=== PATIENT | male | born 2000 | race Caucasian/White ===

== ENCOUNTER 2021-01-23 12:54 | Emergency (ER) | payer OTHER ==
--- NOTE | 2021-01-23 13:29 | RAD REPORT ---
EXAM DESCRIPTION: CT - Head C Spine Mpr Wo Con - 01/23/2021 1:15 pm CLINICAL HISTORY: Head and neck injury status post fall. Head and neck pain COMPARISON: None. TECHNIQUE: Computed axial tomography of the head and cervical spine was obtained. Sagittal and coronal reconstruction was performed. All CT scans are performed using dose optimization technique as appropriate and may include automated exposure control or mA/KV adjustment according to patient size. FINDINGS: An intracranial bleed is not seen. The ventricles are normal in caliber. An extra-axial fl uid collection is not noted.Fluid within the visualized sinuses and mastoids is not seen A cervical fracture is not visualized. No dislocation is noted. IMPRESSION: No acute intracranial abnormality is seen. A cervical fracture is not visualized. If the patient continues to have symptoms to suggest intracra nial /spinal cord pathology then MRI would be recommended
[2021-01-23 14:02] LABS: Hematocrit 46.3 % (39.6-49.0); RBC Red Blood Cell Count 5.65 M/uL (4.33-5.43)
[2021-01-23 14:15] LABS: BUN Blood Urea Nitrogen 13 mg/dL (7-18); Bicarbonate 31 mmol/L (21-32); Glucose Level 101 mg/dL (74-106); Sodium Level 140 mmol/L (136-145)
--- NOTE | 2021-01-23 15:45 | ER ---
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 Pt states "I went to the aa5 bathroom, passed out and hit my head on the left side on the tub, then I went to the living room and passed out again; I just felt really lightheaded before passing out". Pt denies any symptoms a this time, denies N/V, denies headache, denies dizziness/lightheadedness. Coronavirus screen: At this time, the client does not indicate any symptoms associated with coronavirus-19. Ebola Screen: Patient negative for fever greater than or equal to 101.5 degrees Fahrenheit, and additional compatible Ebola Virus Disease symptoms. Initial Sepsis Screen: Does the patient meet any 2 criteria? No. Patient's initial sepsis screen is negative. Does the patient have a suspected source of infection? No. Patient's initial sepsis screen is negative. Risk Assessment: Do you want to hurt yourself or someone else? Patient reports no desire to harm self or others. Onset of symptoms was January 23, 2021. 13:35 Acuity: MARLIN 3 aa5 13:35 Method Of Arrival: Ambulatory aa5 Historical: - Allergies: 13:35 No Known Allergies; aa5 - PMHx: 13:35 Depressive disorder; aa5 - PSHx: 13:35 None; aa5 - Immunization history:: Adult Immunizations unknown. - Social history:: Smoking status: Patient denies any tobacco usage or history of. Screenin:28 Abuse screen: Denies threats or abuse. Denies injuries from another. Nutritional iw screening: No deficits noted. Tuberculosis screening: No symptoms or risk factors identified. Assessment: 15:27 General: Appears in no apparent distress. comfortable, Behavior is calm, cooperative. iw Neuro: Level of Consciousness is awake, alert, obeys commands, Oriented to person, place, time, situation, Moves all extremities. Full function. Derm: Skin is intact, is healthy with good turgor. Vital Signs: 13:35 BP 114 / 76; Pulse 91; Resp 16 S; Temp 97.0(TE); Pulse Ox 96% on R/A; Weight 129.27 kg aa5 (R); Height 6 ft. 3 in. (190.50 cm) (R); Pain 3/10; 13:35 Body Mass Index 35.62 (129.27 kg, 190.50 cm) aa5 [place] Coma Score: 15:41 Eye Response: spontaneous(4). Verbal Response: oriented(5). Motor Response: obeys [facility] commands(6). Total: 15. ED Course: 12:57 Patient arrived in ED. ds1 13:02 Prabhjot Kiran MD is Attending Physician. [facility] 13:15 CT Head C Spine In Process Unspecified. EDCO 13:38 EKG done, by ED staff, reviewed by Prabhjot Kiran MD. aa5 13:40 Initial lab(s) drawn, by nj, sent to lab. Inserted saline lock: 20 gauge in right aa5 antecubital area, using aseptic technique. Blood collected. 13:41 Arm band placed on Patient placed in waiting room, Patient notified of wait time. aa5 13:42 Triage completed. aa5 15:01 Devorah Collado, RN is Primary Nurse. iw Administered Medications: No medications were administered Outcome: 15:44 Discharge ordered by . [facility] 16:00 Patient left the ED. 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 Pt aa5 aa5
--- NOTE | 2021-01-23 15:45 | EDPHYS ---
Physician Documentation [facility] Name: Raegan Roberts Age: 20 yrs Sex: Male : 2000 Arrival Date: 01/23/2021 Time: 12:57 Bed DX2 Private MD: ED Physician Prabhjot Kiran HPI: 01/23 15:39 This 20 yrs old Male presents to ER via Ambulatory with complaints of Fall britany Injury - Hit Head w/LOC, Passed Out Prior To Arrival. 15:39 Details of fall: The patient fell from an upright position, while walking. Onset: The britany symptoms/episode began/occurred just prior to arrival. Associated injuries: The patient sustained injury to the head. Severity of symptoms: At their worst the symptoms were mild, in the emergency department the symptoms are unchanged. The patient has not experienced similar symptoms in the past. Historical: - Allergies: 13:35 No Known Allergies; aa5 - PMHx: 13:35 Depressive disorder; aa5 - PSHx: 13:35 None; aa5 - Immunization history:: Adult Immunizations unknown. - Social history:: Smoking status: Patient denies any tobacco usage or history of. ROS: 15:40 Constitutional: Negative for fever, chills, and weight loss, Eyes: Negative for injury, britany pain, redness, and discharge, ENT: Negative for injury, pain, and discharge, Neck: Negative for injury, pain, and swelling, Cardiovascular: Negative for chest pain, palpitations, and edema, Respiratory: Negative for shortness of breath, cough, wheezing, and pleuritic chest pain, Abdomen/GI: Negative for abdominal pain, nausea, vomiting, diarrhea, and constipation, Back: Negative for injury and pain, : Negative for injury, bleeding, discharge, and swelling, MS/Extremity: Negative for injury and deformity, Skin: Negative for injury, rash, and discoloration, Psych: Negative for depression, anxiety, suicide ideation, homicidal ideation, and hallucinations, Allergy/Immunology: Negative for hives, rash, and allergies, Endocrine: Negative for neck swelling, polydipsia, polyuria, polyphagia, and marked weight changes, Hematologic/Lymphatic: Negative for swollen nodes, abnormal bleeding, and unusual bruising. 15:40 Neuro: Positive for near syncope, weakness. Exam: 15:40 Constitutional: This is a well developed, well nourished patient who is awake, alert, britany and in no acute distress. Head/Face: Normocephalic, atraumatic. Eyes: Pupils equal round and reactive to light, extra-ocular motions intact. Lids and lashes normal. Conjunctiva and sclera are non-icteric and not injected. Cornea within normal limits. Periorbital areas with no swelling, redness, or edema. ENT: Nares patent. No nasal discharge, no septal abnormalities noted. Tympanic membranes are normal and external auditory canals are clear. Oropharynx with no redness, swelling, or masses, exudates, or evidence of obstruction, uvula midline. Mucous membranes moist. Neck: Trachea midline, no thyromegaly or masses palpated, and no cervical lymphadenopathy. Supple, full range of motion without nuchal rigidity, or vertebral point tenderness. No Meningismus. Chest/axilla: Normal chest wall appearance and motion. Nontender with no deformity. No lesions are appreciated. Cardiovascular: Regular rate and rhythm with a normal S1 and S2. No gallops, murmurs, or rubs. Normal PMI, no JVD. No pulse deficits. Respiratory: Lungs have equal breath sounds bilaterally, clear to auscultation and percussion. No rales, rhonchi or wheezes noted. No increased work of breathing, no retractions or nasal flaring. Abdomen/GI: Soft, non-tender, with normal bowel sounds. No distension or tympany. No guarding or rebound. No evidence of tenderness throughout. Back: No spinal tenderness. No costovertebral tenderness. Full range of motion. Male : Normal genitalia with no discharge or lesions. Skin: Warm, dry with normal turgor. Normal color with no rashes, no lesions, and no evidence of cellulitis. MS/ Extremity: Pulses equal, no cyanosis. Neurovascular intact. Full, normal range of motion. Neuro: Awake and alert, GCS 15, oriented to person, place, time, and situation. Cranial nerves II-XII grossly intact. Motor strength 5/5 in all extremities. Sensory grossly intact. Cerebellar exam normal. Normal gait. Psych: Awake, alert, with orientation to person, place and time. Behavior, mood, and affect are within normal limits. 15:40 Musculoskeletal/extremity: DVT Exam: No signs of deep vein thrombosis. no pain, no swelling, no tenderness, negative Homans' sign noted on exam, no appreciated bluish discoloration, no erythema, no increased warmth. 15:46 ECG was reviewed by the Attending Physician. [facility] Vital Signs: 13:35 BP 114 / 76; Pulse 91; Resp 16 S; Temp 97.0(TE); Pulse Ox 96% on R/A; Weight 129.27 kg aa5 (R); Height 6 ft. 3 in. (190.50 cm) (R); Pain 3/10; 13:35 Body Mass Index 35.62 (129.27 kg, 190.50 cm) aa5 [place] Coma Score: 15:41 Eye Response: spontaneous(4). Verbal Response: oriented(5). Motor Response: obeys [facility] commands(6). Total: 15. MDM: 15:28 Patient medically screened. britany 15:41 Differential diagnosis: Contusion of Hematoma on Concussion with LOC. Differential britany diagnosis: closed head injury, contusion, multiple trauma, sprain, strain, drug effect, sepsis, vasovagal episode. Data reviewed: vital signs, nurses notes, lab test result(s), EKG. Data interpreted: nurse receptionist: rate is 91 beats/min, rhythm is regular, Pulse oximetry: is not applicable for this patient encounter. Test interpretation: by ED physician or midlevel provider: ECG. 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 01/23 13:37 Order name: CBC w/o diff; Complete Time: 15:31 aa5 01/23 13:37 Order name: Chem 7; Complete Time: 15:31 aa5 01/23 13:02 Order name: CT Head C Spine; Complete Time: 15:31 britany 01/23 13:02 Order name: Ice pack; Complete Time: 13:38 britany 01/23 13:38 Order name: IV; Complete Time: 13:38 aa5 01/23 13:38 Order name: Glucose, Ancillary Testing; Complete Time: 15:31 EDMN 01/23 13:40 Order name: EKG - Nurse/Tech; Complete Time: 13:40 aa5 EC:46 Rate is 87 beats/min. Rhythm is regular. QRS [place] is Normal. [place] interval is normal. QRS [place] interval is normal. QT interval is normal. No Q waves. T waves are Normal. No ST changes noted. Clinical impression: Normal ECG and No evidence of ischemia. Interpreted by me. Reviewed by me. Administered Medications: No medications were administered Disposition Summary: 01/23/21 15:44 Discharge Ordered Location: Home britany Problem: new britany Symptoms: have improved britany Condition: Stable britany Diagnosis - Syncope Near britany Followup: britany - With: Private Physician - When: As needed - Reason: Recheck today's complaints, Continuance of care, Re-evaluation by your physician Discharge Instructions: - Discharge Summary Sheet britany - Near-Syncope britany - Syncope britany - Weakness britany - Near-Syncope, [id number] britany - Syncope, [id number] britany - Weakness, [id number] britany Forms: - Medication Reconciliation Form britany - Thank You Letter britany - Antibiotic Education britany - Prescription Opioid Use britany Signatures: Dispatcher [employer] EDPrabhjot Zapata MD MD cha Calderon, Audri, RN RN aa5
[2021-01-23 16:12] VITALS: BP 114/76; TEMP 97; O2SAT 96
--- NOTE | 2021-01-24 17:01 | EKG ---
Test Date: 2021-01-23 Test Time: 13:30:25 Director Market Research: NAIMA MEASUREMENT RESULTS: Intervals: Rate: 87 ID: [id number] QRSD: 90 QT: 356 QTc: 428 [place]: P: 63 ID: [id number] QRS: 70 T: 39 INTERPRETIVE STATEMENTS: Normal sinus rhythm with sinus arrhythmia Normal ECG No previous ECG available for comparison Electronically Signed On 01-24-21 16:59:02 CDT by Mandeep Haynes
== END 2021-01-23 16:00 | disposition home or self-care (01) ==
LOC: ER 12:54
DX: R55 Syncope and collapse (principal); R53.1 Weakness; W18.30XA Fall on same level, unspecified, initial encounter; Y93.01 Activity, walking, marching and hiking
CPT/HCPCS: 36415; 70450; 72125; 80048; 82947; 85027; 93005; 99284